=== PATIENT | male | born 1995 | race Caucasian/White ===

== ENCOUNTER 2022-10-25 15:33 | Emergency (ER) | payer SELFPAY ==
[~2022-10-25] VITALS: Ht 175.3 cm; Wt 132.0 kg
[2022-10-25 15:38] VITALS: BP 159/109
[2022-10-25] MEDS ORDERED: IBUPROFEN 600MG TABLET PO ONE (16:15)
[2022-10-25] MEDS ORDERED: ACETAMINOPHEN 325MG TABLET PO ONE (16:15)
== END 2022-10-25 16:37 | disposition left against medical advice (07) ==
LOC: ER 15:33
DX: M79.601 Pain in right arm (principal); R42 Dizziness and giddiness
CPT/HCPCS: 99281